=== PATIENT | female | born 1985 | race Hispanic/Latino ===

== ENCOUNTER 2018-11-20 05:45 | Day surgery (SDC) | payer OTHER ==
[~2018-11-20] VITALS: Ht 160 cm; Wt 69.4 kg
--- NOTE | ~2018-11-20 | OR ---
[facility] [address], [place] [address] Draft DATE OF OPERATION: 11/20/2018 SURGEON: Corbin Mccarthy DO PREOPERATIVE DIAGNOSIS: Endometrial polyp on ultrasound. POSTOPERATIVE DIAGNOSES: 1. Endometrium with polypoid tissue. 2. Thickened endometrium. PROCEDURES PERFORMED: 1. Hysteroscopic polypectomy. 2. Dilation and curettage. NETWORKING ENGINEER: None. ANESTHESIA: MAC. ESTIMATED BLOOD LOSS: 5 mL. SPECIMEN: Endometrial curettings. FINDINGS: Normal external genitalia, vagina, and cervix. Cervical canal was normal. Uterine cavity with normal architecture with some subtle polypoid tissue noted. The endometrium appears somewhat thickened, but otherwise normal. Again, the remainder of the uterine cavity appears normal with bilateral tubal ostia identified. Hemostatic at end of procedure. COMPLICATIONS: None. INDICATIONS: Ms. Nye is a pleasant 33-year-old female, who presented to the office. An ultrasound was performed that demonstrated thickened endometrium consistent with PATIENT NAME: MIGUELINA BURGESS OPERATIVE REPORT DATE OF : 89 REPORT #: [id number] PHYSICIAN: CORBIN MCCARTHY DO PCP: NO PRIMARY CARE PHYSICIAN REPORT IS CONFIDENTIAL AND NOT TO BE RELEASED WITHOUT AUTHORIZATION [facility] [address], [place] [address] Draft possible endometrial polyp. She was consented for hysteroscopic polypectomy. Risks, benefits, and alternatives were discussed in detail. The patient understands and wishes to proceed with the procedure. TECHNIQUE: The patient was taken to the operating room. A time-out was performed to confirm correct patient and correct procedure. MAC anesthesia was adequately established. The patient was prepped and draped in the dorsal lithotomy with her feet in Yellofin stirrups. Her ICPs were on and running. No preoperative antibiotics or heparin were indicated. A weighted speculum was placed in vagina. The anterior lip of the cervix was grasped with an Allis clamp. The cervix was gently dilated using Hegar dilators to a #7. Operative hysteroscope was placed in the cervical os and advanced under direct visualization through the cervical canal into the uterine cavity. Intracavitary position was confirmed by identifying the tubal ostia bilaterally. No gross endometrial polyp was noted. However, there were some polypoid changes of the endometrium. The endometrium also appears somewhat thickened throughout. Decision was made to proceed with polypectomy and curettage. A MyoSure Lite device was selected, advanced through the operative channel of the hysteroscope and global endometrial curetting was gently performed yielding a moderate amount of tissue. The hysteroscope was withdrawn. Bleeding was minimal. The Allis clamp was removed and the patient was taken to PACU in good and stable condition. Sponge and instrument count was correct at the end of the procedure. DO JESUSITA East/JANET /[id number] Copies: ~ PATIENT NAME: MARCOMIGUELINA SIMPSON OPERATIVE REPORT DATE OF : 89 REPORT #: [id number] PHYSICIAN: CORBIN MCCARTHY DO PCP: NO PRIMARY CARE PHYSICIAN REPORT IS CONFIDENTIAL AND NOT TO BE RELEASED WITHOUT AUTHORIZATION
[~2018-11-20 05:45] MED LIST: ZYRTEC10 MG PO
--- NOTE | 2018-11-20 08:57 | NUR ---
11/20/18 0857 Eloisa Mai 0850 PATIENT ARRIVES TO PACU SLEEPING, DOES NOT RESPOND TO VERBAL STIMULI. RESP EVEN AND UNLABORED, MASK AT 6 LITERS. 0855 PATIENT WAKES UP WITH VERBAL STIMULI. RESP EVEN AND UNLABORED, MASK OFF, ROOM AIR SATS 100%.
--- NOTE | 2018-11-21 14:52 | PATH ---
[facility] [address], [place] [address] Signed SPECIMEN(S): A ENDOMETRIAL POLYP SPECIMEN SOURCE: A. ENDOMETRIAL POLYP CLINICAL HISTORY: Endometrial polyp. FINAL PATHOLOGIC DIAGNOSIS: Uterus, endometrium, curettage: - Benign endometrial polyp. - Background endometrium -- secretory phase. - Negative for hyperplasia, atypia, and malignancy. LJA:cml:C2NR MICROSCOPIC EXAMINATION: Histologic sections of all submitted blocks are examined by light microscopy. These findings, together with the gross examination, support the pathologic diagnosis. GROSS DESCRIPTION: The specimen, labeled "AL, endometrial polyp," is received in formalin and consists of irregular shaped, membranous tissue fragments that in aggregate measure 2.5 x 2.4 x 0.8 cm. The specimen is entirely submitted in cassettes (A1-A2). JS (under the direct supervision of a pathologist) The Gross Description was prepared using a voice recognition system. The report was reviewed for accuracy; however, sound-alike word errors, addition and/or deletions may occur. If there is any question about this report, please contact Client Services. PERFORMING LABORATORY: The technical component was performed by [facility], [address] [place] [id number] (Consumer Safety Inspector: Danika Polk MD; CLIA# [id number]). [facility], [address] [address] (Consumer Safety Inspector: Colby Jean MD; CLIA# [id number]). Diagnostician: Colby Jean MD Pathologist PATIENT NAME: MIGUELINA BURGESS PATHOLOGY DATE OF : [birth year] REPORT #: [id number] PHYSICIAN: [facility] PCP: NO PRIMARY CARE PHYSICIAN REPORT IS CONFIDENTIAL AND NOT TO BE RELEASED WITHOUT AUTHORIZATION [address] [place] [address] Signed Electronically Signed 11/21/2018 Copies: ~ PATIENT NAME: MIGUELINA BURGESS PATHOLOGY DATE OF : 89 REPORT #: [id number] PHYSICIAN: [facility] PCP: NO PRIMARY CARE PHYSICIAN REPORT IS CONFIDENTIAL AND NOT TO BE RELEASED WITHOUT AUTHORIZATION
== END 2018-11-20 09:30 | disposition home or self-care (01) ==
LOC: DS 05:45 → OPS 05:45 → DS 06:45 → OPS 09:30
PROVIDERS: Obstetrics & Gynecology
PROC: 0UDB8ZZ Extraction of Endometrium, Via Natural or Artificial Opening Endoscopic (ICD-10-PCS; 2018-11-20)
PROC: 0UB98ZZ Excision of Uterus, Via Natural or Artificial Opening Endoscopic (ICD-10-PCS; principal; 2018-11-20 06:45)
DX: N84.0 Polyp of corpus uteri (principal); Z79.899 Other long term (current) drug therapy
CPT/HCPCS: J1885; J2250; J2405; J2704; J7120